=== PATIENT | female | born 1985 | race Caucasian/White ===

== ENCOUNTER 2016-07-28 10:31 | Emergency (ER) | payer OTHER | END 2016-07-28 14:37 | disposition home or self-care (01) | LOC: FER 10:31 | DX: G43.909 Migraine, unspecified, not intractable, without status migrainosus (principal) | CPT/HCPCS: J1885; J2405; J2765 ==

== ENCOUNTER 2016-09-25 21:31 | Emergency (ER) | payer OTHER | END 2016-09-26 00:38 | disposition home or self-care (01) | LOC: FER 21:31 | DX: T78.1XXA Other adverse food reactions, not elsewhere classified, initial encounter (principal); F41.9 Anxiety disorder, unspecified; Z91.018 Allergy to other foods | CPT/HCPCS: 96372; J2930 ==

== ENCOUNTER 2020-10-07 13:09 | Emergency (ER) | payer OTHER ==
[~2020-10-07 13:09] MED LIST: ALDACTONE100 MG PO; ATIVAN0.5 MG PO; BREO ELLIPTA 11 EACH INH; BUSPIRONE HCL10 MG PO; CELEXA20 MG PO; COZAAR 25MG TAB25 MG PO; COZAAR100 MG PO; FLEXERIL5 MG PO; FLONASE ALLER15.8 ML; IBUPROFEN800 MG PO; NORCO 5-325 TA1 EAC1 PO; PREDNISONE 20MG20 MG PO; PRILOSEC20 MG PO; SINGULAIR10 MG PO; TOPROL XL 25MG25 MG PO; VENTOLIN HFA IN18 GM INH; VITAMIN D21250 MCG PO; ZOFRAN8 MG PO; ZOFRAN8 MG SL; ZYRTEC10 M3 PO
[2020-10-07] MEDS ORDERED: CYCLOBENZAPRINE10 MG PO (15:23)
[2020-10-07] MEDS ORDERED: MEDROL 4MG DOSEP4 MG PO (15:23)
== END 2020-10-07 15:45 | disposition home or self-care (01) ==
LOC: FER 13:09
DX: S73.102A Unspecified sprain of left hip, initial encounter (principal); S63.502A Unspecified sprain of left wrist, initial encounter; S70.312A Abrasion, left thigh, initial encounter; S80.811A Abrasion, right lower leg, initial encounter; M25.572 Pain in left ankle and joints of left foot; I10 Essential (primary) hypertension; J45.909 Unspecified asthma, uncomplicated; V28.4XXA Motorcycle driver injured in noncollision transport accident in traffic accident, initial encounter; Y92.410 Unspecified street and highway as the place of occurrence of the external cause
CPT/HCPCS: 73100; 73502; 73610; 73630; 96372; J1100; J1885

== ENCOUNTER 2020-10-19 15:39 | Emergency (ER) | payer OTHER ==
[~2020-10-19 15:39] MED LIST changes: +CYCLOBENZAPRINE10 MG PO; +MEDROL 4MG DOSEP4 MG PO
[2020-10-19] MEDS ORDERED: BACTROBAN NASAL1 GM TOP (18:42)
== END 2020-10-19 19:06 | disposition home or self-care (01) ==
LOC: FER 15:39
DX: S92.002A Unspecified fracture of left calcaneus, initial encounter for closed fracture (principal); T24.231A Burn of second degree of right lower leg, initial encounter; I10 Essential (primary) hypertension; T31.0 Burns involving less than 10% of body surface; V86.96XA Unspecified occupant of dirt bike or motor/cross bike injured in nontraffic accident, initial encounter; Y92.009 Unspecified place in unspecified non-institutional (private) residence as the place of occurrence of the external cause
CPT/HCPCS: 73610

== ENCOUNTER 2021-01-04 08:55 | Emergency (ER) | payer OTHER ==
[~2021-01-04 08:55] MED LIST changes: +BACTROBAN NASAL1 GM TOP
[2021-01-04] MEDS ORDERED: HYDROCODON-ACE1 EAC2 PO (10:45)
== END 2021-01-04 12:19 | disposition home or self-care (01) ==
LOC: FER 08:55
DX: S93.402A Sprain of unspecified ligament of left ankle, initial encounter (principal); I10 Essential (primary) hypertension; Z91.018 Allergy to other foods; W01.0XXA Fall on same level from slipping, tripping and stumbling without subsequent striking against object, initial encounter; Y92.009 Unspecified place in unspecified non-institutional (private) residence as the place of occurrence of the external cause
CPT/HCPCS: 73630

== ENCOUNTER 2021-05-10 14:58 | Emergency (ER) | payer OTHER ==
[~2021-05-10 14:58] MED LIST changes: +HYDROCODON-ACE1 EAC2 PO
[2021-05-10 16:23] LABS: BASOPHIL 0.4 % (0-2); EOSINOPHIL 1.1 % (0-5); HGB 12.6 g/dl (12.5-16.0); MCH 26.8 pg (25.0-31.0); MCHC 32.3 g/dL (32.0-36.0); MONOCYTE 13.3 % (0-12); MPV 9.5 fL (6.0-9.5); NEUTROPHIL 61.4 % (41-80); NRBC 0; PLT 294 K/uL (150-400); RDW 13.4 % (11.5-14.0); WBC 4.7 K/uL (4.0-10.5)
[2021-05-10 16:32] LABS: ALBUMIN 4.1 g/dL (3.4-5.0); ALKALINE PHOSHATASE 83 U/L (46-116); ALT 37 U/L (14-59); AST 17 U/L (15-37); BILIRUBIN - TOTAL 0.2 mg/dL (0.2-1.0); BUN 12 mg/dL (7-18); BUN/CREAT RATIO (CALC) 15.8 RATIO; CHLORIDE 102 mmol/L (98-107); CO2 (BICARBONATE) 27 mmol/L (21-32); CREATININE 0.76 mg/dL (0.51-0.95); GLOBULIN (CALCULATION) 3.7 g/dL; GLUCOSE 84 mg/dL (74-106); POTASSIUM 4.1 mmol/L (3.5-5.1); TOTAL PROTEIN 7.8 g/dL (6.4-8.2)
[2021-05-10] MEDS ORDERED: ELIQUIS5 MG PO (18:12)
[2021-05-10] MEDS ORDERED: MEDROL 4MG DOSEP4 MG PO (18:12)
[2021-05-10] MEDS ORDERED: ONDANSETRON ODT4 MG PO (18:13)
== END 2021-05-10 18:33 | disposition home or self-care (01) ==
LOC: FER 14:58
PROVIDERS: Emergency Medicine
DX: U07.1 COVID-19 (principal); I26.99 Other pulmonary embolism without acute cor pulmonale; I10 Essential (primary) hypertension; J45.909 Unspecified asthma, uncomplicated
CPT/HCPCS: 36415; 36600; 71275; 80053; 82803; 84145; 84484; 85025; 96372; J1100; J1650; J1885; J2405; J7030; Q9967

== ENCOUNTER 2021-06-28 08:45 | Emergency (ER) | payer OTHER ==
[~2021-06-28 08:45] MED LIST changes: +ELIQUIS5 MG PO; +ONDANSETRON ODT4 MG PO
[2021-06-28 09:25] LABS: BASOPHIL 0.1 % (0-2); EOSINOPHIL 0.3 % (0-5); HCT 40.6 % (37.0-47.0); HGB 13.2 g/dl (12.5-16.0); LYMPHOCYTE 13.6 % (15-48); MCH 26.9 pg (25.0-31.0); MCHC 32.5 g/dL (32.0-36.0); MCV 82.9 fL (78.0-100.0); MONOCYTE 6.8 % (0-12); MPV 9.3 fL (6.0-9.5); NEUTROPHIL 78.8 % (41-80); NRBC 0; PLT 344 K/uL (150-400); RDW 14.3 % (11.5-14.0); WBC 6.8 K/uL (4.0-10.5)
[2021-06-28 09:57] LABS: ALBUMIN 4.1 g/dL (3.4-5.0); BILIRUBIN - TOTAL 0.6 mg/dL (0.2-1.0); BUN/CREAT RATIO (CALC) 13.5 RATIO; CREATININE 0.89 mg/dL (0.51-0.95); GLOBULIN (CALCULATION) 3.7 g/dL; POTASSIUM 3.6 mmol/L (3.5-5.1); TOTAL PROTEIN 7.8 g/dL (6.4-8.2)
[2021-06-28 10:14] LABS: INFLUENZA A NAA NEGATIVE (NEGATIVE)
[2021-06-28 10:23] LABS: CORONAVIRUS 2019 SARS-COV-2 POSITIVE (NEGATIVE)
[2021-06-28 11:42] LABS: BILIRUBIN NEGATIVE (NEGATIVE); BLOOD 1+ Ery/uL (NEGATIVE); CLARITY CLEAR (CLEAR); COLOR YELLOW (YELLOW); GLUCOSE (U) NORMAL (NORMAL); LEUKOCYTES NEGATIVE Leu/uL (NEGATIVE); NITRITE NEGATIVE (NEGATIVE); PROTEIN NEGATIVE (NEGATIVE); UROBILINOGEN 0.2 mg/dL (0.2-1.0); pH 5.5 (5.0-9.0)
[2021-06-28] MEDS ORDERED: ONDANSETRON ODT4 MG PO (11:52)
[2021-06-28 11:53] LABS: MUCOUS TRACE
== END 2021-06-28 12:10 | disposition home or self-care (01) ==
LOC: FER 08:45
PROVIDERS: Emergency Medicine
DX: U07.1 COVID-19 (principal); R31.9 Hematuria, unspecified; I10 Essential (primary) hypertension; E66.9 Obesity, unspecified; R10.9 Unspecified abdominal pain
CPT/HCPCS: 36415; 71045; 80053; 81001; 83605; 83690; 84145; 85025; 87040; 87088; 93005; J2405; J7030; Q9967; U0002

== ENCOUNTER 2021-08-03 13:59 | Emergency (ER) | payer OTHER ==
[2021-08-03] MEDS ORDERED: NORCO 5-325 TA1 EACH PO (15:38)
== END 2021-08-03 15:42 | disposition home or self-care (01) ==
LOC: FER 13:59
DX: M25.511 Pain in right shoulder (principal); Z91.040 Latex allergy status; Z91.018 Allergy to other foods; X50.9XXA Other and unspecified overexertion or strenuous movements or postures, initial encounter; Y93.89 Activity, other specified; Y92.009 Unspecified place in unspecified non-institutional (private) residence as the place of occurrence of the external cause
CPT/HCPCS: 73030

== ENCOUNTER 2021-10-06 21:14 | Emergency (ER) | payer OTHER ==
[~2021-10-06 21:14] MED LIST changes: +NORCO 5-325 TA1 EACH PO
[2021-10-06] MEDS ORDERED: ONDANSETRON ODT4 MG PO (23:53)
[2021-10-08] MEDS ORDERED: MEDROL 4MG DOSEP4 MG PO (22:08)
== END 2021-10-07 00:01 | disposition home or self-care (01) ==
LOC: FER 21:14
DX: S89.91XA Unspecified injury of right lower leg, initial encounter (principal); I10 Essential (primary) hypertension; Z91.040 Latex allergy status; Z91.018 Allergy to other foods; Z79.899 Other long term (current) drug therapy; W19.XXXA Unspecified fall, initial encounter; Y93.89 Activity, other specified; Y92.009 Unspecified place in unspecified non-institutional (private) residence as the place of occurrence of the external cause
CPT/HCPCS: 73564; J1885

== ENCOUNTER 2021-10-08 20:33 | Emergency (ER) | payer OTHER ==
[2021-10-08] MEDS ORDERED: MEDROL 4MG DOSEP4 MG PO (22:08)
== END 2021-10-08 22:42 | disposition home or self-care (01) ==
LOC: FER 20:33
DX: S93.402A Sprain of unspecified ligament of left ankle, initial encounter (principal); I10 Essential (primary) hypertension; Z79.899 Other long term (current) drug therapy; W10.9XXA Fall (on) (from) unspecified stairs and steps, initial encounter; Y92.009 Unspecified place in unspecified non-institutional (private) residence as the place of occurrence of the external cause
CPT/HCPCS: 73610; 96372; J1100; J1885

== ENCOUNTER 2021-12-14 15:39 | Emergency (ER) | payer OTHER ==
[2021-12-14 17:05] LABS: BASOPHIL 0.2 % (0-2); EOSINOPHIL 0.5 % (0-5); HCT 38.3 % (37.0-47.0); HGB 12.7 g/dl (12.5-16.0); MCH 27.3 pg (25.0-31.0); MCHC 33.2 g/dL (32.0-36.0); MCV 82.2 fL (78.0-100.0); MONOCYTE 6.3 % (0-12); MPV 9.2 fL (6.0-9.5); NEUTROPHIL 74.7 % (41-80); NRBC 0; PLT 326 K/uL (150-400); RBC 4.66 M/uL (4.20-5.40); RDW 14.2 % (11.5-14.0); WBC 9.7 K/uL (4.0-10.5)
[2021-12-14 17:26] LABS: CREATININE 0.83 mg/dL (0.51-0.95); POTASSIUM 4.1 mmol/L (3.5-5.1)
[2021-12-14] MEDS ORDERED: FIORICET1 EACH PO (20:15)
[2021-12-14] MEDS ORDERED: ANTIVERT25 MG PO (20:15)
== END 2021-12-14 22:13 | disposition home or self-care (01) ==
LOC: FER 15:39
PROVIDERS: Nurse Practitioner Family
DX: H81.10 Benign paroxysmal vertigo, unspecified ear (principal); G43.909 Migraine, unspecified, not intractable, without status migrainosus; I10 Essential (primary) hypertension; J45.909 Unspecified asthma, uncomplicated
CPT/HCPCS: 36415; 70450; 80048; 85025; J1100; J1885; J2270; J2405; J7030

== ENCOUNTER 2021-12-31 20:47 | Emergency (ER) | payer OTHER ==
[~2021-12-31 20:47] MED LIST changes: +ANTIVERT25 MG PO; +FIORICET1 EACH PO
[2022-01-01] MEDS ORDERED: KEFLEX250 MG PO (00:19)
[2022-01-01] MEDS ORDERED: DIFLUCAN 100MG100 MG PO (00:19)
[2022-01-01] MEDS ORDERED: ANTIVERT25 MG PO (00:19)
== END 2022-01-01 00:33 | disposition home or self-care (01) ==
LOC: FER 20:47
DX: S01.01XA Laceration without foreign body of scalp, initial encounter (principal); I10 Essential (primary) hypertension; Z23 Encounter for immunization; Z79.899 Other long term (current) drug therapy; W20.8XXA Other cause of strike by thrown, projected or falling object, initial encounter; Y92.009 Unspecified place in unspecified non-institutional (private) residence as the place of occurrence of the external cause
CPT/HCPCS: 70450; 72125; 90471; 90715; J2270; Q0162

== ENCOUNTER 2022-01-07 22:20 | Emergency (ER) | payer OTHER ==
[~2022-01-07 22:20] MED LIST changes: +DIFLUCAN 100MG100 MG PO; +KEFLEX250 MG PO
[2022-01-07 22:47] LABS: BASOPHIL 0.3 % (0-2); EOSINOPHIL 2.3 % (0-5); HCT 34.2 % (37.0-47.0); HGB 11.2 g/dl (12.5-16.0); LYMPHOCYTE 28.2 % (15-48); MCH 27.1 pg (25.0-31.0); MCHC 32.7 g/dL (32.0-36.0); MCV 82.8 fL (78.0-100.0); MONOCYTE 6.4 % (0-12); MPV 9.4 fL (6.0-9.5); NEUTROPHIL 62.4 % (41-80); NRBC 0; PLT 302 K/uL (150-400); RBC 4.13 M/uL (4.20-5.40); RDW 14.3 % (11.5-14.0); WBC 7.5 K/uL (4.0-10.5)
[2022-01-07 22:59] LABS: INR 0.95 (0.9-1.2); PROTHROMBIN TIME 12.4 SECONDS (11.9-13.9)
[2022-01-07 23:00] LABS: PTT 27.6 SECONDS (24.9-34.6)
[2022-01-07 23:04] LABS: ALBUMIN 3.3 g/dL (3.4-5.0); ALKALINE PHOSHATASE 61 U/L (46-116); ALT 26 U/L (14-59); AST 11 U/L (15-37); BILIRUBIN - TOTAL 0.2 mg/dL (0.2-1.0); BUN 14 mg/dL (7-18); BUN/CREAT RATIO (CALC) 17.1 RATIO; CHLORIDE 106 mmol/L (98-107); CO2 (BICARBONATE) 25 mmol/L (21-32); CREATININE 0.82 mg/dL (0.51-0.95); GLOBULIN (CALCULATION) 3.2 g/dL; GLUCOSE 102 mg/dL (74-106); POTASSIUM 3.8 mmol/L (3.5-5.1); TOTAL PROTEIN 6.5 g/dL (6.4-8.2)
== END 2022-01-08 05:21 | disposition home or self-care (01) ==
LOC: FER 22:20
PROVIDERS: Emergency Medicine
DX: R55 Syncope and collapse (principal); R51.9 Headache, unspecified; M54.2 Cervicalgia; I10 Essential (primary) hypertension; J45.909 Unspecified asthma, uncomplicated; Z86.711 Personal history of pulmonary embolism; Z79.01 Long term (current) use of anticoagulants; Z79.899 Other long term (current) drug therapy
CPT/HCPCS: 36415; 80053; 84484; 85025; 85610; 85730; 93005; J2270; J2405; J7030; Q0169; Q9967

== ENCOUNTER 2022-01-10 13:46 | Emergency (ER) | payer OTHER ==
[2022-01-10 16:41] LABS: BASOPHIL 0.4 % (0-2); EOSINOPHIL 2.4 % (0-5); HCT 39.6 % (37.0-47.0); HGB 12.9 g/dl (12.5-16.0); LYMPHOCYTE 27.6 % (15-48); MCHC 32.6 g/dL (32.0-36.0); MONOCYTE 6.7 % (0-12); MPV 9.4 fL (6.0-9.5); NEUTROPHIL 62.5 % (41-80); NRBC 0; PLT 316 K/uL (150-400); RBC 4.77 M/uL (4.20-5.40); RDW 14.5 % (11.5-14.0); WBC 7.6 K/uL (4.0-10.5)
[2022-01-10 17:00] LABS: BUN/CREAT RATIO (CALC) 11.8 RATIO; CREATININE 0.76 mg/dL (0.51-0.95); POTASSIUM 3.9 mmol/L (3.5-5.1)
[2022-01-10] MEDS ORDERED: FIORICET1 EACH PO ×2 (19:14→19:16)
== END 2022-01-10 19:52 | disposition home or self-care (01) ==
LOC: FER 13:46
PROVIDERS: Nurse Practitioner Family
DX: G43.909 Migraine, unspecified, not intractable, without status migrainosus (principal); I10 Essential (primary) hypertension; Z91.040 Latex allergy status; Z28.311 Partially vaccinated for COVID-19
CPT/HCPCS: 36415; 80048; 85025; J1100; J1885; J2405; J7030